=== PATIENT | male | born 1950 | race Caucasian/White ===

== ENCOUNTER 2020-03-30 09:19 | Inpatient (IN) ==
[2020-03-24 14:45] LABS: Basophils # (Auto) 0.04 K/mcL (0.00-0.20); Basophils % (Auto) 0.6 % (0.0-2.0); Eosinophils # (Auto) 0.15 K/mcL (0.00-0.70); Eosinophils % (Auto) 2.1 % (0.0-7.0); Hematocrit 40.2 % (41.0-55.0); Hemoglobin 12.7 g/dL (13.5-16.5); Lymphocytes # (Auto) 1.73 K/mcL (1.50-4.80); Lymphocytes % (Auto) 24.4 % (15.0-49.0); Mean Cell Volume 85.9 fL (80.0-100.0); Mean Corpuscular HGB Conc 31.6 g/dL (31.0-36.0); Monocytes # (Auto) 0.48 K/mcL (0.10-0.90); Monocytes % (Auto) 6.8 % (1.0-12.0); Neutrophils % (Auto) 66.1 % (38.0-78.0); Platelet Count 260 K/mcL (140-440); RBC 4.68 M/mcL (4.50-5.90); Red Cell Distribution Width 13.2 % (11.5-14.5); WBC 7.1 K/mcL (4.5-11.0)
[2020-03-24 14:56] LABS: Blood Urea Nitrogen 13 mg/dL (8-23); Calcium 9.5 mg/dL (8.6-10.4); Carbon Dioxide 25 mmol/L (22-30); Chloride 101 mmol/L (96-108); Glomerular Filtration Rate 67; Glucose 130 mg/dL (70-105)
[2020-03-24 15:37] LABS: Appearance,Urine CLEAR (Clear); Bilirubin,Urine Negative (Negative); Color,Urine YELLOW; Culture Indicated,Urine No; Glucose,Urine (UA) 50 mg/dL (Negative); Ketones,Urine Negative (Negative); Leukocyte Esterase,Urine Negative /ug (Negative); Mucus,Urine FEW /hpf; Nitrate,Urine Negative (Negative); Protein,Urine 100 mg/dL (Negative); Specific Gravity,Urine 1.015 (1.000-1.035); Urine Blood 0.03 mg/dL (Negative); Urine Hyaline Cast 2 /lph (0-2); Urine RBC 4 /hpf (0-3); Urine Squamous Epithelial Cell 2 /hpf (0-4); Urine Transitional Epi Cells < 1 /hpf (0-2); Urine WBC 1 /hpf (0-4); Urobilinogen,Urine Negative
[2020-03-24 18:16] LABS: Hemoglobin A1C 9.4 % Hgb (4.0-6.0)
[~2020-03-30 09:19] MED LIST: IPRATROPIUM/ALBUTEROL 3 ML AMPUL.NEB NEB PRN; SCOPOLAMINE 1 PATCH PATCH TOPICAL PRN; ceFAZolin 3 GM in DEXTROSE 5% IN WATER 50 ML IV SCH
[2020-03-30] MEDS ORDERED: GENTAMICIN SULFATE 800 MG/20 ML VIAL IR ONE (10:58)
[2020-03-30] MEDS ORDERED: BUPIVACAINE 0.5% 50 ML VIAL IJ ONE (10:59)
[2020-03-30] MEDS ORDERED: KETAMINE 100 MG/ML ML ONE (11:50)
[2020-03-30] MEDS ORDERED: MIDAZOLAM 2 MG/2 ML VIAL ONE (11:50)
[2020-03-30] MEDS ORDERED: PROPOFOL 200 MG/20 ML VIAL IV ONE (11:50)
[2020-03-30] MEDS ORDERED: GLYCOPYRROLATE 0.2 MG/ML VIAL IV ONE (11:50)
[2020-03-30] MEDS ORDERED: fentaNYL 100 MCG/2 ML VIAL IV ONE (11:50)
[2020-03-30] MEDS ORDERED: LIDOCAINE HCL/PF 100 MG/5 ML SYRINGE IV ONE (11:50)
[2020-03-30] MEDS ORDERED: ONDANSETRON 4 MG/2 ML VIAL ONE (11:50)
[2020-03-30] MEDS ORDERED: DEXAMETHASONE 10 MG/ML VIAL ONE (11:50)
[2020-03-30] MEDS ORDERED: BENZOCAINE/MENTHOL 1 LOZENGE PO PRN (12:32)
[2020-03-30] MEDS ORDERED: LABETALOL 5 MG/ML ML IV PRN ×2 (12:32→14:53)
[2020-03-30] MEDS ORDERED: ONDANSETRON 4 MG/2 ML VIAL IV PRN ×2 (12:32→13:25)
[2020-03-30] MEDS ORDERED: IPRATROPIUM/ALBUTEROL 3 ML AMPUL.NEB NEB PRN (12:32)
[2020-03-30] MEDS ORDERED: LACTATED RINGERS 1,000 ML IV SCH (12:45)
[2020-03-30] MEDS ORDERED: METHOCARBAMOL 750 MG TABLET PO PRN (13:25)
[2020-03-30] MEDS: MEPERIDINE 25 MG/ML SYRINGE IV PRN ×2 (13:38→13:55)
[2020-03-30] MEDS: fentaNYL 100 MCG/2 ML VIAL IV PRN ×4 (13:41→14:14)
--- NOTE | 2020-03-30 13:43 | Brief Operative Note ---
Brief Operative Note Date of procedure: 03/30/20 Pre-op diagnosis: pseudathrosis ankle; diabetic neuropathy right Post-op diagnosis: same Procedure: BK amputation Grafts/Implants: No Anesthesia: GETA Findings: as above Complications: none Surgeon: Teo Cordoba Tourniquet Time (Minutes): 23 Specimens Removed/Pathology: other (leg for disposal) Condition: stable Disposition: PACU
--- NOTE | 2020-03-30 13:45 | Internal Med History&Physical ---
HPI History of Present Illness Patient information: Note initiated : 03/30/20 at 1:37 pm Service Date, if different from initiated Date: [] Patient: Pantera Jain a 69 y/o M admitted on 03/30/20 for Right Below Knee Amputation. Chief Complaint: [] History of present illness: Mr. Jain is a 69 year old M Who had a bimalleolar ankle fracture on the right with subsequent ORIF but with delayed union and subsequent revision March 2018. Taken back 06/2019 for posttraumatic arthritis and underwent ankle fusion. He continued to display failed healing and Today is now status post right below the knee amputation. Medical conditions include diabetes and hypertension. PFSH PFSH Social History smoking status: Never smoker MEDS/ALLERGIES Home Medications and Allergies Home Medications Medication Instructions Recorded Confirmed Type amlodipine 10 mg PO DAILY 12/19/17 03/30/20 History cholecalciferol (vitamin D3) 5,000 unit PO DAILY 12/19/17 03/30/20 History [Dialyvite Vitamin D] insulin glargine [Lantus] 60 mg SQ DAILY 12/19/17 03/30/20 History lisinopril [Zestril] 40 mg PO HS 12/19/17 03/30/20 History clotrimazole 1 dose TOPICAL BID 04/01/18 03/30/20 History polyethylene glycol 3350 17 gm PO PRN PRN 04/01/18 03/30/20 History simvastatin 20 mg PO HS 04/01/18 03/30/20 History glipizide 15 mg PO HS 03/24/20 03/30/20 History glipizide 20 mg PO QDAY 03/24/20 03/30/20 History insulin glargine [Lantus Solostar 30 unit SUBCUT HS 03/24/20 03/30/20 History U-100 Insulin] omeprazole 20 mg PO ACB 03/24/20 03/30/20 History sennosides-docusate sodium 1 tab-cap PO BID 03/24/20 03/30/20 History Allergies Allergy/AdvReac Type Severity Reaction Status Date / Time acetaminophen Allergy Severe Swelling Verified 03/24/20 11:14 of Lip/Tongue/Throat codeine Allergy Severe Anaphylaxis Verified 03/24/20 11:14 testosterone Allergy Intermediate Rash Verified 03/24/20 11:14 metformin AdvReac Severe Diarrhea Verified 03/24/20 11:14 EXAM Constitutional Vitals: Temp Pulse Resp BP Pulse Ox 97.5 F 77 16 204/86 97 03/30/20 10:00 03/30/20 10:00 03/30/20 10:00 03/30/20 10:00 03/30/20 10:00 A/P Narrative A/P Narrative: A: *s/p Right BKA (03/30): *DM w/neuropathy: *HTN/HLD: on norvasc/lisinopril -hypertensive on arrival *GERD P: -surgical site per Dr. Cordoba -continue home basal insulin and titrate up as needed, SSI -cont home norvasc 10mg & Lisinopril 40mg, may need to add diuretic - -pt/ot -ppx: post-op per Ortho/home ppi Time Spent With Patient Time: Total time spent is greater than 50% in coordination of care (as documented) at patient's floor/unit and/or counseling patient: QUALITY Stroke Symptom Onset Unknown: No VTE Deep Vein Thrombosis/Pulmonary Embolism Present on Admission: No
--- NOTE | 2020-03-30 14:13 | Internal Medicine Consult Note ---
HPI Data of Consult Primary Care Provider: Orlando Sloan Consult Narrative Patient Information: Note initiated : 03/30/20 at 2:10 pm Service Date, if different from initiated Date: [] Patient: Pantera Jain a 69 y/o M admitted on 03/30/20 for Right Below Knee Amputation. Chief Complaint: [] Mr. Jain is a 69 year old M who had a bimalleolar ankle fracture on the right with subsequent ORIF but with delayed union and subsequent revision March 2018. Taken back 06/2019 for posttraumatic arthritis and underwent ankle fusion. He continued to display failed healing and Today is now status post right below the knee amputation. Medical conditions include diabetes and hypertension. Patient presently in PACU. Comfortable and stable. cc:: CC: Teo Cordoba [facility] Social History (Updated 03/30/20 @ 14:12 by Steffen Armstrong DO) smoking status: Never smoker additional history: Past medical history: Diabetes hypertension hyperlipidemia GERD Past surgical history: Right ankle fracture repair with revision and cholecystectomy Social history: Patient denies tobacco drinks alcohol rarely ambulates with walker lives by himself MEDS/ALLERGIES Home Medications and Allergies Home Medications Medication Instructions Recorded Confirmed Type amlodipine 10 mg PO DAILY 12/19/17 03/30/20 History cholecalciferol (vitamin D3) 5,000 unit PO DAILY 12/19/17 03/30/20 History [Dialyvite Vitamin D] insulin glargine [Lantus] 60 mg SQ DAILY 12/19/17 03/30/20 History lisinopril [Zestril] 40 mg PO HS 12/19/17 03/30/20 History clotrimazole 1 dose TOPICAL BID 04/01/18 03/30/20 History polyethylene glycol 3350 17 gm PO PRN PRN 04/01/18 03/30/20 History simvastatin 20 mg PO HS 04/01/18 03/30/20 History glipizide 15 mg PO HS 03/24/20 03/30/20 History glipizide 20 mg PO QDAY 03/24/20 03/30/20 History insulin glargine [Lantus Solostar 30 unit SUBCUT HS 03/24/20 03/30/20 History U-100 Insulin] omeprazole 20 mg PO ACB 03/24/20 03/30/20 History sennosides-docusate sodium 1 tab-cap PO BID 03/24/20 03/30/20 History Allergies Allergy/AdvReac Type Severity Reaction Status Date / Time acetaminophen Allergy Severe Swelling Verified 03/24/20 11:14 of Lip/Tongue/Throat codeine Allergy Severe Anaphylaxis Verified 03/24/20 11:14 testosterone Allergy Intermediate Rash Verified 03/24/20 11:14 metformin AdvReac Severe Diarrhea Verified 03/24/20 11:14 EXAM Constitutional Vitals: Temp Pulse Resp BP Pulse Ox 98.7 F 103 H 19 141/70 97 03/30/20 13:45 03/30/20 13:45 03/30/20 13:45 03/30/20 13:45 03/30/20 13:45 Exam: General: Alert, Awake, No acute Distress, obese Eyes/N/T: EOMI, PERRL, Head/Neck: neck supple, normocephalic atraumatic CV: RRR, No murmurs, normal s1/s2 Pulm: Clear b/l, no wheezing/rhonchi/rales Abd: soft, nontender, +BS x4 Ext: no clubbing/cyanosis. 1-2+ edema LLE. RLE BKA Neuro: Alert, no focal deficits, moves all extremities, CN 2-12 grossly intact, Skin: warm/dry A/P Narrative A/P Narrative: A: *s/p Right BKA (03/30): *DM w/neuropathy: *HTN/HLD: on norvasc/lisinopril -hypertensive on arrival *Peripheral edema: *GERD P: -surgical site per Dr. Cordoba -continue home basal insulin and titrate up as needed, SSI -cont home norvasc 10mg & Lisinopril 40mg, prn IV - may need to add diuretic or decrease norvasc for peripheral edema -TONYA stocking to left -pt/ot -ppx: post-op per Ortho/home ppi Time Spent With Patient Time: Total time spent is greater than 50% in coordination of care (as documented) at patient's floor/unit and/or counseling patient:
[2020-03-30] MEDS ORDERED: DEXTROSE 50% 50 ML VIAL IV PRN (14:53)
[2020-03-30] MEDS ORDERED: hydrALAZINE 20 MG/ML VIAL IV PRN (14:53)
[2020-03-30] MEDS ORDERED: DEXTROSE 31 GM ORAL.SUSP PO PRN (14:53)
[2020-03-30] MEDS: traMADol 50 MG TABLET PO PRN ×2 (15:07→19:07)
[2020-03-30] MEDS: morphine 4 MG/ML VIAL IV PRN ×2 (15:08→19:05)
[2020-03-30] MEDS: INSULIN LISPRO 1 UNIT/0.01 ML UNIT SQ SCH ×2 (17:59→20:48)
[2020-03-30] MEDS: INSULIN GLARGINE, HUMAN 1 UNIT/0.01 ML SQ SCH (20:47)
[2020-03-30] MEDS: SENNOSIDES/DOCUSATE SODIUM 1 TAB TABLET PO SCH (20:48)
[2020-03-30] MEDS: glipiZIDE 5 MG TABLET PO SCH (20:48)
[2020-03-30] MEDS: oxyCODONE 10 MG TAB.ER.12H PO SCH (20:49)
[2020-03-30] MEDS: SIMVASTATIN 20 MG TABLET PO SCH (20:49)
[2020-03-30] MEDS ORDERED: POLYETHYLENE GLYCOL 3350 17 GM PACKET PO PRN (21:00)
[2020-03-30] MEDS ORDERED: LISINOPRIL 20 MG TABLET PO SCH (21:00)
[2020-03-31] MEDS ORDERED: ONDANSETRON 4 MG ODT TABLET ONE (01:04)
[2020-03-31] MEDS: traMADol 50 MG TABLET PO PRN ×2 (05:15→19:27)
[2020-03-31] MEDS ORDERED: ONDANSETRON 4 MG ODT TABLET SL PRN (06:06)
[2020-03-31] MEDS: OMEPRAZOLE 20 MG CAPSULE PO SCH (06:59)
[2020-03-31] MEDS: morphine 4 MG/ML VIAL IV PRN ×2 (06:59→19:26)
[2020-03-31 07:03] LABS: ALT/SGPT 13 U/L (<40); AST/SGOT 19 U/L (<40); Albumin 3.3 gm/dL (3.2-5.2); Alkaline Phosphatase 115 U/L (39-117); Bilirubin,Direct < 0.2 mg/dL (<0.3); Bilirubin,Total 0.3 mg/dL (0.1-1.0); Blood Urea Nitrogen 20 mg/dL (8-23); Calcium 8.7 mg/dL (8.6-10.4); Carbon Dioxide 22 mmol/L (22-30); Chloride 96 mmol/L (96-108); Globulin 3.4 gm/dL (2.2-3.7); Glomerular Filtration Rate 46; Glucose 411 mg/dL (70-105); Lactate Dehydrogenase 234 U/L (135-225); Triglycerides 117 mg/dL (<150); Uric Acid 5.8 mg/dL (2.5-8.0)
--- NOTE | 2020-03-31 07:33 | Internal Med Progress Note ---
SUBJECTIVE Subjective Patient information: Note initiated : 03/31/20 at 7:30 am Service Date, if different from initiated Date: [] Patient: Pantera Jain a 69 y/o M admitted on 03/30/20 for Right Below Knee Amputation. Chief Complaint: [] Interval history: Mr. Jain is a 69 year old M who had a bimalleolar ankle fracture on the right with subsequent ORIF but with delayed union and subsequent revision March 2018. Taken back 06/2019 for posttraumatic arthritis and underwent ankle fusion. He continued to display failed healing and Today is now status post right below the knee amputation. Medical conditions include diabetes and hypertension. Patient presently in PACU. Comfortable and stable. 03/31 Blood glucose elevates elevated today which is likely reason for his mild hyponatremia and hyperkalemia. He did get his evening insulin last night but he takes the majority of his insulin in the mornings. He will get that this morning. We will put him on every 4 Accu-Cheks with high sliding scale while is blood sugars level out. Creatinine elevated today we will check urine studies and trial IV fluids. Patient states he is urinating okay will but will bladder scan if necessary renal ultrasound rule out hydronephrosis. He really has no complaints this morning. Review of Systems: denies headache/fever/chills/nausea/vomiting/chest or abdominal pain/cough/dyspnea/diarrhea. Otherwise see above. Constitutional Vitals: Vital Signs Temp Pulse Resp BP Pulse Ox 97.5 F 90 16 116/73 95 03/31/20 06:32 03/31/20 06:32 03/31/20 06:32 03/31/20 06:32 03/31/20 06:32 Period Temp Pulse Resp BP Sys/Kelley Pulse Ox Last 24 Hr 97.1 F-98.7 F 77-114 12-25 116-204/69-97 90-100 Intake and Output 03/30/20 03/31/20 03/31/20 21:59 05:59 13:59 Intake Total 700 350 Output Total 0 350 175 Balance 700 0 -175 Weight 142.927 kg Intake & Output: Intake & Output 03/30/20 03/31/20 03/31/20 21:59 05:59 13:59 Intake Total 700 350 Output Total 0 350 175 Balance 700 0 -175 Weight 142.927 kg Intake: Oral 700 350 Output: Drainage 0 0 RT BKA 0 0 Void Amount 350 175 Other: Meal Dinner Percent of Meal Consumed 75% Feeding Ability Independent Urine Appearance Clear Clear Urine Color Dark Yellow Dark Yellow Exam: General: Alert, Awake, No acute Distress, obese Eyes/N/T: EOMI, Head/Neck: neck supple, CV: RRR, No murmurs, Pulm: Clear b/l, no wheezing/rhonchi/rales Abd: soft, nontender, +BS x4 Ext: no clubbing/cyanosis. 1-2+ edema LLE. RLE BKA Neuro: Alert, no focal deficits, moves all extremities, CN 2-12 grossly intact, Skin: warm/dry OBJ DATA Labs CBC & Chem 7: 03/24/20 11:38 03/31/20 05:12 Labs: Abnormal Lab Results 03/31/20 05:12 Sodium 131 L Potassium 5.8 H Creatinine 1.5 H Glucose 411 H Phosphorus 5.0 H Lactate Dehydrogenase 234 H Meds: Medications Amlodipine Besylate (Norvasc) 10 mg PO DAILY [facility] Dextrose (Dextrose 50%) 0 ml IV UD PRN PRN Reason: Hypoglycemia Diagnostic Test (Pha) (Accu-Chek) 1 each FS [facility] Last Admin: 03/30/20 20:32 Dose: 1 each Documented by: Glipizide (Glucotrol) 15 mg PO [facility] Last Admin: 03/30/20 20:48 Dose: 15 mg Documented by: Glipizide (Glucotrol) 20 mg PO QDAY [facility] Glucose (Insta-Glucose) 15 gm PO PRN PRN PRN Reason: Hypoglycemia Hydralazine HCl (Apresoline) 0 mg IV Q2HP PRN PRN Reason: Hypertension Insulin Glargine (Lantus) 30 unit SQ [facility] Last Admin: 03/30/20 20:47 Dose: 30 units Documented by: Insulin Glargine (Lantus) 60 unit SQ DAILY [facility] Insulin Human Lispro (Humalog) 0 unit SQ [facility]; Protocol Last Admin: 03/30/20 20:48 Dose: 8 units Documented by: Labetalol HCl (Trandate) 0 mg IV Q2HP PRN PRN Reason: Hypertension Lisinopril (Zestril) 40 mg PO [facility] Last Admin: 03/30/20 20:48 Dose: 40 mg Documented by: Methocarbamol (Robaxin) 750 mg PO Q6HP PRN PRN Reason: Muscle Spasm Morphine Sulfate (Morphine) 2 - 6 mg IV Q1HP PRN; Protocol PRN Reason: Per Pain Protocol Last Admin: 03/31/20 06:59 Dose: 4 mg Documented by: Omeprazole (Omeprazole 20 Mg Capsule) 20 mg PO ACB [facility] Last Admin: 03/31/20 06:59 Dose: 20 mg Documented by: Ondansetron HCl (Ondansetron 4 Mg Odt Tablet) 4 mg SL Q4HP PRN PRN Reason: Nausea Oxycodone HCl (Oxycontin) 10 mg PO BID [facility]; Protocol Last Admin: 03/30/20 20:49 Dose: 10 mg Documented by: Polyethylene Glycol (Miralax) 17 gm PO HSP PRN PRN Reason: Constipation Senna/Docusate Sodium (Senna Plus Tablet) 1 tab PO BID [facility] Last Admin: 03/30/20 20:48 Dose: 1 tab Documented by: Simvastatin (Zocor) 20 mg PO HS [facility] Last Admin: 03/30/20 20:49 Dose: 20 mg Documented by: Tramadol HCl (Tramadol 50 Mg Tablet) 50 mg PO Q4HP PRN; Protocol PRN Reason: Pain Last Admin: 03/31/20 05:15 Dose: 50 mg Documented by: Vitamin D (Vitamin D3) 5,000 unit PO DAILY [facility] A/P Narrative A/P Narrative: A: *s/p Right BKA (03/30): *DM w/neuropathy: with hyperglycemia *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 Cordoba -continue home basal insulin and titrate up as needed, SSI q4 for now, -urine studies, trial IVF, f/u renal fxn, monitor uop, bladder scan, renal u/s if necessary -cont home norvasc 10mg, prn IV -hold Lisinopril for renal fxn and hyperkalemia - may need decrease norvasc for peripheral edema or alternative -TONYA stocking to left -pt/ot -ppx: post-op per Ortho/home ppi Time Spent With Patient Time: Total time spent is greater than 50% in coordination of care (as documented) at patient's floor/unit and/or counseling patient: QUALITY Stroke Symptom Onset Unknown: No VTE Deep Vein Thrombosis/Pulmonary Embolism Present on Admission: No
[2020-03-31] MEDS ORDERED: SODIUM POLYSTYRENE SULFONATE 15 GM/60 ML SUSPENSION PO ONE (07:36)
[2020-03-31] MEDS ORDERED: DEXTROSE 50% 50 ML VIAL IV PRN (07:39)
[2020-03-31] MEDS ORDERED: DEXTROSE 31 GM ORAL.SUSP PO PRN (07:39)
[2020-03-31] MEDS ORDERED: 0.9 % SODIUM CHLORIDE 1,000 ML IV SCH (07:45)
[2020-03-31] MEDS: INSULIN LISPRO 1 UNIT/0.01 ML UNIT SQ SCH ×6 (08:20→23:41)
--- NOTE | 2020-03-31 09:27 | Operative Note ---
DATE OF OPERATION: 03/30/2020 PREOPERATIVE DIAGNOSES: 1. Nonunion, right ankle fusion. 2. Diabetic neuropathy. POSTOPERATIVE DIAGNOSES: 1. Nonunion, right ankle fusion. 2. Diabetic neuropathy. PROCEDURE: Right [id number] amputation. SURGEON: Teo Cordoba M.D. MANAGER OF PROJECT MANAGEMENT: Jurgen Lezama PA-C. This providers expertise and technical skill were required throughout the case. The PA assisted with preoperative coordination, intraoperative retraction, wound closure, and dressing and splint application, as well as postoperative documentation and care coordination. ANESTHESIA: General by Evelio Vale M.D. ESTIMATED BLOOD LOSS: 300 mL. TOURNIQUET TIME: 23 minutes. SUMMARY OF PROCEDURE: General anesthesia was obtained. The right leg was prepped and draped. A modified fishmouth incision was outlined to plan a bone cut 4 fingerbreadths below the tibial tubercle. The posterior flap was longer than the anterior flap. The incision was made followed by deep dissection using a Bovie and a knife to elevate the anterior musculature. The osteotomy was then done of the tibia and an anterior bevel was taken. The fibula was osteotomized proximal to the tibial cut. This posterior skin incision had been made. A bevelled cut of the muscle and subcutaneous tissue was then done after the bone osteotomy using a cake knife. After completion of this, the leg was removed. There was no evidence of infection in the area. The popliteal nerve was injected with 10 mL of Marcaine. It was then transected above the level of the bone cut. The popliteal artery was suture ligated x2. Feeding arteries and veins were ligated as well. The tourniquet was let down. The remaining bleeders were clamped and then ligated. The area was thoroughly irrigated. Two drill holes were then made in the anterior tibia. Through each hole a suture of 0 Vicryl was placed. That was then placed through the superficial and deep posterior fascia. The posterior flap was reduced. These sutures were tied creating a myodesis effect. The remainder of the fascia was closed with a 0 Vicryl bringing the anterior soft tissue to the superficial posterior fascia. The wound was then closed using 2-0 Monocryl buried on the subcutaneous tissue and simple mattress sutures of 0 Prolene on the skin. A wound VAC was then placed as well, followed by a knee immobilizer set at 0-60. The sponge and needle count was correct. The patient tolerated the procedure well and was taken to the recovery room in stable condition. AB:sarah Job ID: [id number] Doc ID: [id number] Wayne Peacock DO
[2020-03-31] MEDS: SENNOSIDES/DOCUSATE SODIUM 1 TAB TABLET PO SCH ×2 (09:58→21:06)
[2020-03-31] MEDS: glipiZIDE 5 MG TABLET PO SCH ×2 (09:58→21:06)
[2020-03-31] MEDS: amLODIPine 10 MG TABLET PO SCH (09:58)
[2020-03-31] MEDS: VITAMIN D3 5,000 UNIT CAPSULE PO SCH (09:58)
[2020-03-31] MEDS: oxyCODONE 10 MG TAB.ER.12H PO SCH ×2 (09:59→21:06)
[2020-03-31] MEDS: INSULIN GLARGINE, HUMAN 1 UNIT/0.01 ML SQ SCH ×2 (10:01→21:07)
--- NOTE | 2020-03-31 12:03 | Orthopedic Progress Note ---
SUBJECTIVE Subjective Patient information: Note initiated : 03/31/20 at 11:58 am Service Date, if different from initiated Date: [] Patient: Pantera Jain 69 y/o M admitted on 03/30/20 for Right Below Knee Amputation. Chief Complaint: [] Patient is POD 1 from right below the knee amputation. He says is pain is well controlled and overall he is feeling well. He desires to go home instead of a S NF but would like to regain his strength and work with PT on transfers before doing so. He has a wheelchair accessible home. He denies any CP, ANDERSON, nausea, vomiting, fever, or any other acute symptoms. Constitutional Vitals: Vital Signs Temp Pulse Resp BP Pulse Ox 98 F 81 18 108/63 91 03/31/20 11:48 03/31/20 11:48 03/31/20 11:48 03/31/20 11:48 03/31/20 11:48 Period Temp Pulse Resp BP Sys/Kelley Pulse Ox Last 24 Hr 97.1 F-98.7 F 81-114 12-25 108-158/63-97 90-100 Intake and Output 03/30/20 03/31/20 03/31/20 21:59 05:59 13:59 Intake Total 700 350 320 Output Total 0 350 175 Balance 700 0 145 Weight 315 lb 1.6 oz Intake & Output: Intake & Output 03/30/20 03/31/20 03/31/20 21:59 05:59 13:59 Intake Total 700 350 320 Output Total 0 350 175 Balance 700 0 145 Weight 315 lb 1.6 oz Intake: Oral 700 350 320 Output: Drainage 0 0 RT BKA 0 0 Void Amount 350 175 Other: Meal Dinner Breakfast Percent of Meal Consumed 75% 75% Feeding Ability Independent Independent Urine Appearance Clear Clear Urine Color Dark Yellow Dark Yellow OBJ DATA Labs CBC & Chem 7: 03/24/20 11:38 03/31/20 05:12 Labs: Abnormal Lab Results 03/31/20 05:12 Sodium 131 L Potassium 5.8 H Creatinine 1.5 H Glucose 411 H Phosphorus 5.0 H Lactate Dehydrogenase 234 H Meds: Medications Amlodipine Besylate (Amlodipine 10 Mg Tablet) 10 mg PO DAILY [facility] Last Admin: 03/31/20 09:58 Dose: 10 mg Documented by: Dextrose (Dextrose 50%) 0 ml IV UD PRN PRN Reason: Hypoglycemia Dextrose (Dextrose 50% 50 Ml Vial) 0 ml IV UD PRN PRN Reason: Hypoglycemia Diagnostic Test (Pha) (Accu-Chek) 1 each FS ACHS [facility] Last Admin: 03/31/20 11:49 Dose: Not Given Documented by: Diagnostic Test (Pha) (Accu-Chek 1 Each Strip) 1 each FS Q4H [facility] Last Admin: 03/31/20 11:45 Dose: 1 each Documented by: Glipizide (Glucotrol) 15 mg PO HS [facility] Last Admin: 03/30/20 20:48 Dose: 15 mg Documented by: Glipizide (Glipizide 5 Mg Tablet) 20 mg PO QDAY [facility] Last Admin: 03/31/20 09:58 Dose: 20 mg Documented by: Glucose (Insta-Glucose) 15 gm PO PRN PRN PRN Reason: Hypoglycemia Glucose (Dextrose 31 Gm Oral.Susp) 15 gm PO PRN PRN PRN Reason: Hypoglycemia Hydralazine HCl (Apresoline) 0 mg IV Q2HP PRN PRN Reason: Hypertension Sodium Chloride (Sodium Chloride 0.9%) 1,000 mls @ 100 mls/hr IV .Q10H [facility] Stop: 03/31/20 17:44 Last Admin: 03/31/20 10:10 Dose: 100 mls/hr Documented by: Insulin Glargine (Lantus) 30 unit SQ [facility] Last Admin: 03/30/20 20:47 Dose: 30 units Documented by: Insulin Glargine (Insulin Glargine, Human 1 Unit/0.01 Ml) 60 unit SQ DAILY [facility] Last Admin: 03/31/20 10:01 Dose: 60 units Documented by: Insulin Human Lispro (Insulin Lispro 1 Unit/0.01 Ml Unit) 0 unit SQ Q4H [facility]; Protocol Last Admin: 03/31/20 08:20 Dose: 20 units Documented by: Labetalol HCl (Trandate) 0 mg IV Q2HP PRN PRN Reason: Hypertension Methocarbamol (Robaxin) 750 mg PO Q6HP PRN PRN Reason: Muscle Spasm Morphine Sulfate (Morphine 4 Mg/Ml Vial) 2 - 6 mg IV Q1HP PRN; Protocol PRN Reason: Per Pain Protocol Last Admin: 03/31/20 06:59 Dose: 4 mg Documented by: Omeprazole (Omeprazole 20 Mg Capsule) 20 mg PO ACB [facility] Last Admin: 03/31/20 06:59 Dose: 20 mg Documented by: Ondansetron HCl (Ondansetron 4 Mg Odt Tablet) 4 mg SL Q4HP PRN PRN Reason: Nausea Oxycodone HCl (Oxycodone 10 Mg Tab.Er.12h) 10 mg PO BID [facility]; Protocol Last Admin: 03/31/20 09:59 Dose: 10 mg Documented by: Polyethylene Glycol (Miralax) 17 gm PO HSP PRN PRN Reason: Constipation Senna/Docusate Sodium (Senna Plus Tablet) 1 tab PO BID [facility] Last Admin: 03/31/20 09:58 Dose: 1 tab Documented by: Simvastatin (Zocor) 20 mg PO HS [facility] Last Admin: 03/30/20 20:49 Dose: 20 mg Documented by: Tramadol HCl (Tramadol 50 Mg Tablet) 50 mg PO Q4HP PRN; Protocol PRN Reason: Pain Last Admin: 03/31/20 05:15 Dose: 50 mg Documented by: Vitamin D (Vitamin D3 5,000 Unit Capsule) 5,000 unit PO DAILY [facility] Last Admin: 03/31/20 09:58 Dose: 5,000 unit Documented by: A/P Assessment and plan (1) History of right below knee amputation: Status: Acute Comment: Patient is POD 1 from right BKA doing well. Continue PT and medical management per hospitalist Patient desires to discharge to home and likely plan for discharge in next 1-2 days Follow up with Jurgen Lezama on 04-05-20 Leave prevena wound vac in place until follow up appointment Re apply louis/knee ranger as needed. Please leave knee ranger on to protect stump as much as possible. Orthopedics signing off, if needed please contact rail transportation operator provider for any issues. Time Spent With Patient Time: Total time spent is greater than 50% in coordination of care (as documented) at patient's floor/unit and/or counseling patient:
--- NOTE | 2020-03-31 12:54 | Internal Med Progress Note ---
SUBJECTIVE Subjective Patient information: Note initiated : 04/01/20 at 12:44 pm Service Date, if different from initiated Date: [] Patient: Pantera Jain a 69 y/o M admitted on 03/30/20 for Right Below Knee Amputation. Chief Complaint: [] Interval history: Mr. Jain is a 69 year old M who had a bimalleolar ankle fracture on the right with subsequent ORIF but with delayed union and subsequent revision March 2018. Taken back 06/2019 for posttraumatic arthritis and underwent ankle fusion. He continued to display failed healing and Today is now status post right below the knee amputation. Medical conditions include diabetes and hypertension. Patient presently in PACU. Comfortable and stable. 03/31 Blood glucose elevates elevated today which is likely reason for his mild hyponatremia and hyperkalemia. He did get his evening insulin last night but he takes the majority of his insulin in the mornings. He will get that this morni ng. We will put him on every 4 Accu-Cheks with high sliding scale while is blood sugars level out. Creatinine elevated today we will check urine studies and trial IV fluids. Patient states he is urinating okay will but will bladder scan if necessary renal ultrasound rule out hydronephrosis. He really has no complaints this morning. 04/01 Creatinine increasing, hypokalemia resolved. Continuing IV fluid this morning with 500 mL bolus. Check bilateral renal ultrasound, UA. Decreased Lantus AM and PM doses as DEENA will likely decrease insulin requirement. Discontinued morphine. Bladder scan Qshift and straight cath prn. Review of Systems: denies headache/fever/chills/nausea/vomiting/chest or abdominal pain/cough/dyspnea/diarrhea. Otherwise see above. Constitutional Vitals: Vital Signs Temp Pulse Resp BP Pulse Ox 98 F 81 18 108/63 91 03/31/20 11:48 03/31/20 11:48 03/31/20 11:48 03/31/20 11:48 03/31/20 11:48 Period Temp Pulse Resp BP Sys/Kelley Pulse Ox Last 24 Hr 97.1 F-98.7 F 81-114 12-25 108-158/63-97 90-100 Intake and Output 03/30/20 03/31/20 03/31/20 21:59 05:59 13:59 Intake Total 700 350 320 Output Total 0 350 175 Balance 700 0 145 Weight 142.927 kg Intake & Output: Intake & Output 03/30/20 03/31/20 03/31/20 21:59 05:59 13:59 Intake Total 700 350 320 Output Total 0 350 175 Balance 700 0 145 Weight 142.927 kg Intake: Oral 700 350 320 Output: Drainage 0 0 0 RT BKA 0 0 0 Void Amount 350 175 Other: Meal Dinner Breakfast Percent of Meal Consumed 75% 75% Feeding Ability Independent Independent Urine Appearance Clear Clear Urine Color Dark Yellow Dark Yellow Exam: General: Alert, Awake, No acute Distress, obese Eyes/N/T: EOMI, Head/Neck: neck supple, CV: RRR, No murmurs, Pulm: Clear b/l, no wheezing/rhonchi/rales Abd: soft, nontender, +BS x4 Ext: no clubbing/cyanosis. 1-2+ edema LLE. RLE BKA Neuro: Alert, no focal deficits, moves all extremities, CN 2-12 grossly intact, Skin: warm/dry OBJ DATA Labs CBC & Chem 7: 03/24/20 11:38 04/01/20 05:19 Labs: Abnormal Lab Results 03/31/20 05:12 Sodium 131 L Potassium 5.8 H Creatinine 1.5 H Glucose 411 H Phosphorus 5.0 H Lactate Dehydrogenase 234 H Meds: Medications Amlodipine Besylate (Amlodipine 10 Mg Tablet) 10 mg PO DAILY [facility] Last Admin: 03/31/20 09:58 Dose: 10 mg Documented by: Dextrose (Dextrose 50%) 0 ml IV UD PRN PRN Reason: Hypoglycemia Dextrose (Dextrose 50% 50 Ml Vial) 0 ml IV UD PRN PRN Reason: Hypoglycemia Diagnostic Test (Pha) (Accu-Chek) 1 each FS ACHS [facility] Last Admin: 03/31/20 11:49 Dose: Not Given Documented by: Diagnostic Test (Pha) (Accu-Chek 1 Each Strip) 1 each FS Q4H [facility] Last Admin: 03/31/20 11:45 Dose: 1 each Documented by: Glipizide (Glucotrol) 15 mg PO HS [facility] Last Admin: 03/30/20 20:48 Dose: 15 mg Documented by: Glipizide (Glipizide 5 Mg Tablet) 20 mg PO QDAY [facility] Last Admin: 03/31/20 09:58 Dose: 20 mg Documented by: Glucose (Insta-Glucose) 15 gm PO PRN PRN PRN Reason: Hypoglycemia Glucose (Dextrose 31 Gm Oral.Susp) 15 gm PO PRN PRN PRN Reason: Hypoglycemia Hydralazine HCl (Apresoline) 0 mg IV Q2HP PRN PRN Reason: Hypertension Sodium Chloride (Sodium Chloride 0.9%) 1,000 mls @ 100 mls/hr IV .Q10H [facility] Stop: 03/31/20 17:44 Last Admin: 03/31/20 10:10 Dose: 100 mls/hr Documented by: Insulin Glargine (Lantus) 30 unit SQ HS [facility] Last Admin: 03/30/20 20:47 Dose: 30 units Documented by: Insulin Glargine (Insulin Glargine, Human 1 Unit/0.01 Ml) 60 unit SQ DAILY [facility] Last Admin: 03/31/20 10:01 Dose: 60 units Documented by: Insulin Human Lispro (Insulin Lispro 1 Unit/0.01 Ml Unit) 0 unit SQ Q4H [facility]; Protocol Last Admin: 03/31/20 11:54 Dose: 12 units Documented by: Labetalol HCl (Trandate) 0 mg IV Q2HP PRN PRN Reason: Hypertension Methocarbamol (Robaxin) 750 mg PO Q6HP PRN PRN Reason: Muscle Spasm Morphine Sulfate (Morphine 4 Mg/Ml Vial) 2 - 6 mg IV Q1HP PRN; Protocol PRN Reason: Per Pain Protocol Last Admin: 03/31/20 06:59 Dose: 4 mg Documented by: Omeprazole (Omeprazole 20 Mg Capsule) 20 mg PO ACB [facility] Last Admin: 03/31/20 06:59 Dose: 20 mg Documented by: Ondansetron HCl (Ondansetron 4 Mg Odt Tablet) 4 mg SL Q4HP PRN PRN Reason: Nausea Oxycodone HCl (Oxycodone 10 Mg Tab.Er.12h) 10 mg PO BID [facility]; Protocol Last Admin: 03/31/20 09:59 Dose: 10 mg Documented by: Polyethylene Glycol (Miralax) 17 gm PO HSP PRN PRN Reason: Constipation Senna/Docusate Sodium (Senna Plus Tablet) 1 tab PO BID [facility] Last Admin: 03/31/20 09:58 Dose: 1 tab Documented by: Simvastatin (Zocor) 20 mg PO [facility] Last Admin: 03/30/20 20:49 Dose: 20 mg Documented by: Tramadol HCl (Tramadol 50 Mg Tablet) 50 mg PO Q4HP PRN; Protocol PRN Reason: Pain Last Admin: 03/31/20 05:15 Dose: 50 mg Documented by: Vitamin D (Vitamin D3 5,000 Unit Capsule) 5,000 unit PO DAILY [facility] Last Admin: 03/31/20 09:58 Dose: 5,000 unit Documented by: A/P Assessment and plan (1) History of right below knee amputation: Status: Acute Comment: Patient is POD 1 from right BKA doing well. Continue PT and medical management per hospitalist Patient desires to discharge to home and likely plan for discharge in next 1-2 days Follow up with Jurgen Lezama on 04-05-20 Leave prevena wound vac in place until follow up appointment Re apply louis/knee ranger as needed. Please leave knee ranger on to protect stump as much as possible. Orthopedics signing off, if needed please contact practice consultant provider for any issues. Narrative A/P Narrative: ASSESSMENT: 69-year-old male history of HTN, IDDM II, HLD, CKD GERD, recent right bimalleolar ankle fractures initially treated with ORIF then later required ankle fusion. This was unfortunately c/b nonhealing wound requiring r ight BKA (03/30/20). Hospital course complicated by DEENA on CKD. 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 Cordoba -decrease Lantus to 20 AM and 40 PM, decrease SSI to AC&HS. -urine studies, trial IVF, geo renal UA, monitor uop, bladder scan and straight cath prn -avoid nephrotoxic meds, hypotension -hold home norvasc for low normal blood pressure -hold Lisinopril for renal fxn and recent -TONYA stocking to left -wound cares -pt/ot -ppx: heparin SQ -Dispo: probably SNF Time Spent With Patient Time: Total time spent is greater than 50% in coordination of care (as documented) at patient's floor/unit and/or counseling patient: 35 QUALITY Stroke Symptom Onset Unknown: No VTE Deep Vein Thrombosis/Pulmonary Embolism Present on Admission: No
[2020-03-31 14:11] LABS: Blood Urea Nitrogen 28 mg/dL (8-23); Calcium 8.7 mg/dL (8.6-10.4); Carbon Dioxide 21 mmol/L (22-30); Chloride 92 mmol/L (96-108); Glomerular Filtration Rate 40; Glucose 202 mg/dL (70-105)
[2020-03-31] MEDS: SIMVASTATIN 20 MG TABLET PO SCH (21:06)
[2020-04-01] MEDS: INSULIN LISPRO 1 UNIT/0.01 ML UNIT SQ SCH ×5 (03:47→20:46)
[2020-04-01] MEDS: OMEPRAZOLE 20 MG CAPSULE PO SCH (07:46)
[2020-04-01 08:08] LABS: ALT/SGPT 10 U/L (<40); AST/SGOT 24 U/L (<40); Albumin 3.3 gm/dL (3.2-5.2); Alkaline Phosphatase 97 U/L (39-117); Bilirubin,Direct < 0.2 mg/dL (<0.3); Bilirubin,Total 0.3 mg/dL (0.1-1.0); Blood Urea Nitrogen 42 mg/dL (8-23); Calcium 8.5 mg/dL (8.6-10.4); Carbon Dioxide 24 mmol/L (22-30); Chloride 96 mmol/L (96-108); Globulin 3.3 gm/dL (2.2-3.7); Glomerular Filtration Rate 24; Glucose 100 mg/dL (70-105); Lactate Dehydrogenase 215 U/L (135-225); Phosphorous 7.1 mg/dL (2.5-4.5); Triglycerides 164 mg/dL (<150); Uric Acid 6.3 mg/dL (2.5-8.0)
[2020-04-01] MEDS ORDERED: 0.9 % SODIUM CHLORIDE 500 ML IV ONE (08:28)
[2020-04-01] MEDS: SENNOSIDES/DOCUSATE SODIUM 1 TAB TABLET PO SCH ×2 (08:46→22:44)
[2020-04-01] MEDS: oxyCODONE 10 MG TAB.ER.12H PO SCH (08:46)
[2020-04-01] MEDS: INSULIN GLARGINE, HUMAN 1 UNIT/0.01 ML SQ SCH (08:46)
[2020-04-01] MEDS: VITAMIN D3 5,000 UNIT CAPSULE PO SCH (08:46)
[2020-04-01] MEDS: glipiZIDE 5 MG TABLET PO SCH (08:46)
[2020-04-01] MEDS: amLODIPine 10 MG TABLET PO SCH (08:47)
[2020-04-01] MEDS ORDERED: LACTULOSE 20 GM/30 ML ORAL.SOL PO PRN ×2 (09:31→20:17)
[2020-04-01 14:20] LABS: Appearance,Urine CLEAR (Clear); Bacteria,Urine Few /hpf (0); Bilirubin,Urine Negative (Negative); Calcium Oxalate Crystals,Urine Few /hpf; Color,Urine YELLOW; Culture Indicated,Urine Yes; Glucose,Urine (UA) 150 mg/dL (Negative); Ketones,Urine Negative (Negative); Leukocyte Esterase,Urine Negative /ug (Negative); Mucus,Urine Mod /hpf; Nitrate,Urine Negative (Negative); Protein,Urine 30 mg/dL (Negative); Specific Gravity,Urine 1.018 (1.000-1.035); Urine Blood Negative (Negative); Urine Hyaline Cast 40 /lph (0-2); Urine RBC < 1 /hpf (0-3); Urine Squamous Epithelial Cell 1 /hpf (0-4); Urine WBC 2 /hpf (0-4); Urobilinogen,Urine Negative
[2020-04-01] MEDS ORDERED: ALBUTEROL SULFATE 2.5 MG/3 ML NEBULIZER NEB PRN ×2 (16:32→20:17)
[2020-04-01] MEDS ORDERED: ALBUTEROL SULFATE 2.5 MG/3 ML NEBULIZER ONE (16:52)
--- NOTE | 2020-04-01 18:30 | XRay Report ---
CLINICAL INFORMATION: Increasingly SOB COMPARISON: None. FINDINGS: Heart is moderately enlarged. Mediastinum is unremarkable. There is mild redistribution of the upper lobe pulmonary vasculature - no definite edema. Minor bibasilar atelectasis noted. No effusions. IMPRESSION: Borderline CHF or volume overload Interpreted and Authenticated by: Carlos Temple 04/01/20
[2020-04-01] MEDS ORDERED: FUROSEMIDE 40 MG/4 ML VIAL IV ONE (19:02)
[2020-04-01] MEDS ORDERED: traMADol 50 MG TABLET PO PRN (20:17)
[2020-04-01] MEDS ORDERED: LABETALOL 5 MG/ML ML IV PRN (20:17)
[2020-04-01] MEDS ORDERED: POLYETHYLENE GLYCOL 3350 17 GM PACKET PO PRN (20:17)
[2020-04-01] MEDS ORDERED: DEXTROSE 50% 50 ML VIAL IV PRN ×2 (20:17)
[2020-04-01] MEDS ORDERED: ONDANSETRON 4 MG/2 ML VIAL ONE (20:17)
[2020-04-01] MEDS ORDERED: LIDOCAINE HCL/PF 100 MG/5 ML SYRINGE IV ONE (20:17)
[2020-04-01] MEDS ORDERED: hydrALAZINE 20 MG/ML VIAL IV PRN (20:17)
[2020-04-01] MEDS ORDERED: GLYCOPYRROLATE 0.2 MG/ML VIAL IV ONE (20:17)
[2020-04-01] MEDS ORDERED: ONDANSETRON 4 MG ODT TABLET SL PRN (20:17)
[2020-04-01] MEDS ORDERED: DEXTROSE 31 GM ORAL.SUSP PO PRN ×2 (20:17)
[2020-04-01] MEDS: 0.9 % SODIUM CHLORIDE 10 ML SYRINGE IV SCH (20:20)
[2020-04-01] MEDS ORDERED: SIMVASTATIN 20 MG TABLET PO SCH (21:00)
[2020-04-01] MEDS ORDERED: INSULIN GLARGINE, HUMAN 1 UNIT/0.01 ML SQ SCH ×2 (21:00)
[2020-04-01] MEDS ORDERED: HEPARIN 5,000 UNIT/ML VIAL SQ SCH (21:00)
[2020-04-01] MEDS ORDERED: TAMSULOSIN 0.4 MG CAPSULE PO SCH ×2 (21:00)
[2020-04-01] MEDS: HEPARIN 5,000 UNIT/ML VIAL SQ SCH (22:43)
[2020-04-02] MEDS: 0.9 % SODIUM CHLORIDE 10 ML SYRINGE IV SCH (04:20)
[2020-04-02 06:20] LABS: Basophils # (Auto) 0.06 K/mcL (0.00-0.20); Basophils % (Auto) 0.6 % (0.0-2.0); Eosinophils # (Auto) 0.27 K/mcL (0.00-0.70); Eosinophils % (Auto) 2.7 % (0.0-7.0); Hematocrit 33.3 % (41.0-55.0); Hemoglobin 9.9 g/dL (13.5-16.5); Lymphocytes # (Auto) 1.85 K/mcL (1.50-4.80); Lymphocytes % (Auto) 18.3 % (15.0-49.0); Mean Cell Volume 91.5 fL (80.0-100.0); Mean Corpuscular HGB Conc 29.7 g/dL (31.0-36.0); Mean Platelet Volume 10.4 fL (7.4-10.4); Monocytes # (Auto) 1.12 K/mcL (0.10-0.90); Monocytes % (Auto) 11.1 % (1.0-12.0); Neutrophils % (Auto) 67.3 % (38.0-78.0); Platelet Count 227 K/mcL (140-440); RBC 3.64 M/mcL (4.50-5.90); Red Cell Distribution Width 13.6 % (11.5-14.5); WBC 10.1 K/mcL (4.5-11.0)
--- NOTE | 2020-04-02 06:43 | XRay Report ---
CLINICAL INFORMATION: Post operative abdominal distention COMPARISON: None. FINDINGS: Stool gas pattern is unremarkable. No free air or organomegaly or soft tissue mass. Moderate abdominal enlargement due to pannus appreciated. 1 cm C shaped calcification right upper quadrant is likely a hepatic granuloma. Does not configuration of a gallstone IMPRESSION: Negative Interpreted and Authenticated by: Carlos Temple 04/02/20
[2020-04-02 07:14] LABS: ALT/SGPT 10 U/L (<40); AST/SGOT 28 U/L (<40); Alkaline Phosphatase 97 U/L (39-117); Bilirubin,Direct < 0.2 mg/dL (<0.3); Bilirubin,Total 0.3 mg/dL (0.1-1.0); Blood Urea Nitrogen 51 mg/dL (8-23); Calcium 8.2 mg/dL (8.6-10.4); Carbon Dioxide 24 mmol/L (22-30); Chloride 99 mmol/L (96-108); Glomerular Filtration Rate 24; Glucose 60 mg/dL (70-105); Lactate Dehydrogenase 218 U/L (135-225); Phosphorous 6.2 mg/dL (2.5-4.5); Triglycerides 169 mg/dL (<150); Uric Acid 7.5 mg/dL (2.5-8.0)
[2020-04-02] MEDS: INSULIN LISPRO 1 UNIT/0.01 ML UNIT SQ SCH ×2 (07:25→11:02)
[2020-04-02] MEDS ORDERED: OMEPRAZOLE 20 MG CAPSULE PO SCH (07:30)
[2020-04-02] MEDS ORDERED: INSULIN GLARGINE, HUMAN 1 UNIT/0.01 ML SQ SCH ×3 (09:00)
[2020-04-02] MEDS ORDERED: VITAMIN D3 5,000 UNIT CAPSULE PO SCH (09:00)
[2020-04-02] MEDS ORDERED: POLYETHYLENE GLYCOL 3350 17 GM PACKET PO SCH (09:00)
[2020-04-02] MEDS: HEPARIN 5,000 UNIT/ML VIAL SQ SCH (09:10)
[2020-04-02] MEDS: SENNOSIDES/DOCUSATE SODIUM 1 TAB TABLET PO SCH (09:38)
[2020-04-02] MEDS ORDERED: IPRATROPIUM/ALBUTEROL 3 ML AMPUL.NEB NEB SCH (11:00)
[2020-04-02] MEDS ORDERED: FUROSEMIDE 40 MG/4 ML VIAL IV ONE ×2 (12:31→20:00)
[2020-04-02 13:22] LABS: Albumin 3.1 gm/dL (3.2-5.2); Blood Urea Nitrogen 51 mg/dL (8-23); Calcium 8.4 mg/dL (8.6-10.4); Carbon Dioxide 26 mmol/L (22-30); Chloride 97 mmol/L (96-108); Glomerular Filtration Rate 26; Glucose 95 mg/dL (70-105); Phosphorous 5.5 mg/dL (2.5-4.5)
--- NOTE | 2020-04-02 14:16 | Discharge Summary ---
Discharge Provider Provider Patient information: Note initiated : 04/02/20 at 1:19 pm Service Date, if different from initiated Date: [] Patient: Pantera Jain 69 y/o M admitted on 03/30/20 for Right Below Knee Amputation. Chief Complaint: [nonhealing right ankle wound] Date of admission: 03/30/20 09:19 Discharge date: 04/02/20 Primary care physician: Orlando Sloan Consults: 03/30/20 13:37 Consult to Physician [CONS] Routine Comment: Consulting Provider: Steffen Armstrong Reason For Exam: Physician to Consult Discharge Meds Discharge Medications Home Medications Lantus U-100 Insulin 60 mg SQ DAILY 12/19/17 [History Confirmed 03/30/20 Last Taken 03/29/20] amlodipine 10 mg PO DAILY 12/19/17 [History Confirmed 03/30/20 Last Taken 03/29/20] cholecalciferol (vitamin D3) [Dialyvite Vitamin D] 5,000 unit PO DAILY 12/19/17 [History Confirmed 03/30/20 Last Taken 03/29/20] lisinopril [Zestril] 40 mg PO HS 12/19/17 [History Confirmed 03/30/20 Last Taken 03/30/20] clotrimazole 1 dose TOPICAL BID 04/01/18 [History Confirmed 03/30/20 Last Taken 03/29/20] polyethylene glycol 3350 17 gm PO PRN PRN 04/01/18 [History Confirmed 03/30/20 Last Taken 03/29/20] simvastatin 20 mg PO HS 04/01/18 [History Confirmed 03/30/20 Last Taken 03/29/20] Lantus Solostar U-100 Insulin 30 unit SUBCUT HS 03/24/20 [History Confirmed 03/30/20 Last Taken 03/29/20] glipizide 15 mg PO HS 03/24/20 [History Confirmed 03/30/20 Last Taken 03/29/20] glipizide 20 mg PO QDAY 03/24/20 [History Confirmed 03/30/20 Last Taken 03/29/20] omeprazole 20 mg PO ACB 03/24/20 [History Confirmed 03/30/20 Last Taken 03/30/20] sennosides-docusate sodium 1 tab-cap PO BID 03/24/20 [History Confirmed 03/30/20 Last Taken 03/29/20] COURSE Hospital Course Hospital course: Mr. Jain is a 69 year old M with a history of HTN, IDDM II, HLD, reported CKD (II-III), GERD, morbid obesity who was admitted to [facility] on 03/30/20 for a rigth BKA by the orthopedic surgery service. The pertinent orthopedic history is that the patient had right bimalleolar ankle fractures requiring ORIF a couple years ago. That was unfortunately complicated by delayed union and required a subsequent revision in March 2018. That was apparently complicated by posttraumatic arthritis and the patient underwent later required ankle fusion. That was complicated by poor wound healing and the patient ultimately required a right BKA which led this hospital admission. The hospitalist service was asked to manage as the primary service due to medical comorbidities. The patient underwent a successful BKA on 03/30/20 but unfortunately developed an DEENA. The patient received IV fluids for the DEENA which did not respond to the IV fluid challenge. Urine analysis was fairly benign, no WBC or RBC, only some urine protein. Lisinopril was held for the DEENA, later norvasc was also held for low normal blood pressure. There where no fevers of leukocytosis to suspect an underlying infectious process. The patient developed edema in his remaining left leg and a chest xray was suggestive of early CHF. The patient received IV lasix. A vargas catheter was placed for urinary retention after multiple straight caths were required. Bilateral renal ultrasound was ordered but not completed as it was the weekend. At around that time the patient also developed hypoxia requiring about 4l/min oxygen via nasal canula. The patient was also increasingly confused. An ABG was consistent with respiratory acidosis and hypoxia. All pain medications and other potentially sedating medications were discontinued. The patient was transferred to the [facility] ICU and started on BiPAP. Repeat ABG showed persistent respiratory acidosis and CO2 levels that were not much improved. BiPAP pressure levels were increased to 18/8, repeat ABG showed about the same level of respiratory acidosis pH 7.27, pCO2 60 with pO2 104 on FiO2 40. HCO3 was 27.6. Code status was discussed with the patient but his was confused, likely from CO2 narcosis, and did not have capacity. No family was identified to act as a surrogate decision maker after a search of available records. Given the concern that the patient was not improving on BiPAP and may require intubation and mechanical ventilation as the next intervention for respiratory failure the patient was discharged to the [facility] ICU. Case discussed with Dr. Bai. The patient's previous home medications were continued unchanged at this discharge to avoid confusion during the hospital to hospital transfer however many of them were held for all or part of this hospitalization, notably lisinopril, norvasc, and glipizide. Also required significantly less Lantus compared to his home dose. Hospitalization are discussed below; Acute hypoxic and hypercapnic respiratory failure-see above, I suspect hypoxia developed mostly is a result of volume overload/CHF and that respiratory acidosis ensued in the setting of post operative pain control with opioids, possibly undiagnosed obstructive sleep apnea and/or obesity hypoventilation syndrome, abdominal distention (see below), and respiratory fatigue resulting in failure to correct hypercapnia with BiPAP. The patient will be at high risk of requiring intubation and mechanical ventilation. Congestive heart failure-likely from IV fluids received during surgery and for the DEENA, received lasix IV but will need more diuresis. Suspect underlying diastolic dysfunction, follow up pending ECHO report. Acute kidney injury-suspect this is from ATN related to hemodynamic changes during the recent surgery, less likely to be another form of intrinsic kidney injury. The patient did have urinary retention noted on point of care ultrasound but that was likely related to opioids and underlying BPH. I doubt obstructive nephropathy however renal ultrasound was not done as it was the weekend-consider ordering to rule out hydronephrosis. Did not respond to IV fluid challenge and now actually volume overloaded requiring IV lasix. Recommend following renal function closely and will likely require more diuresis over the next couple days. Expect this to resolve but could progress to requiring renal replacement therapy. Will need to continue holding lisinopril and avoid nephrotoxic medications. Atrial flutter-noted on EKG and persistent on telemetry. This is an new diagnosis and spontanously rate controlled during this hospitalization. Recommend monitoring on telemetry which will likely be done in the [facility] ICU. ECHO was completed at [facility], the report is pending. If atrial flutter is confirmed then could consider anticoagulation for stroke prophylaxis and cardiology follow up. Diabetes mellitus-required decreased doses of Lantus compared to home regimen, likely due to poor food intake and DEENA. Held home glipizide in the hospital. Encephalopathy-suspect this is secondary to CO2 narcosis. Patient wakes up with stimulation and follows commands briefly before falling back asleep. If focal neurologic signs develop could consider stroke in the setting of atrial flutter. Mildly elevated troponin-likely type II ME from CHF vs nonischemic myocardial injury, no ischemic changes noted on EKG. Consider trending troponin for a couple labs. Follow ECHO report for wall motion abnormalities. Recent BKA-wound cares, has wound VAC, after the patient has stabilized he will likely need a SNF for rehab. Abdominal distention-nontender, no guarding. Abdominal xray reported as negative. Aggressive bowel regimen and close monitoring. Discharge diagnosis: Acute hypoxic and hypercapnic respiratory failure Secondary discharge diagnosis: Acute kidney injury S/p right BKA for nonhealing ankle surgical wound. Diabetes mellitus type II Hypertension Obesity Reason for admission: Right BKA Time Spent with Patient Time attestation: Total time spent providing and/or coordinating discharge services: 40 minutes EXAM Constitutional Vitals: Temp Pulse Resp BP Pulse Ox 98.5 F 87 14 149/74 100 04/02/20 12:01 04/02/20 12:01 04/02/20 12:01 04/02/20 12:01 04/02/20 12:01 Additional findings Additional findings: Head: Atraumatic, normal inspection. Eyes: normal appearance, no scleral icterus. Neck: full ROM Respiratory: on BiPAP, no accessory muscle use Cardiovascular: normal rate and irregular rhythm, S1, S2. GI/Abdominal: distended, nontender, no guarding. Extremities: right BKA, left lower extremity pitting edema. Neurological: confused, CN II-XII intact, intact motor, intact sensation. Psychiatric: somewhat agitated when awakened Skin: warm, normal color Discharge Data Data Completed and Pending Labs on day of discharge: Labs from last 24 hours 04/02/20 04/02/20 04/02/20 12:08 09:53 04:53 WBC 10.1 RBC 3.64 L Hgb 9.9 L Hct 33.3 L MCV 91.5 MCH 27.2 MCHC 29.7 L RDW 13.6 Plt Count 227 MPV 10.4 Neut % (Auto) 67.3 Lymph % (Auto) 18.3 Bulloch % (Auto) 11.1 Eos % (Auto) 2.7 Baso % (Auto) 0.6 Lymph # (Auto) 1.85 Bulloch # (Auto) 1.12 H Eos # (Auto) 0.27 Baso # (Auto) 0.06 Absolute Neutrophils 6.79 Sodium Pending Potassium Pending Chloride Pending Carbon Dioxide Pending Anion Gap Pending BUN Pending Creatinine Pending GFR Calculation Pending Glucose Pending Uric Acid Calcium Pending Phosphorus Pending Magnesium Total Bilirubin Direct Bilirubin GGT AST ALT Alkaline Phosphatase Lactate Dehydrogenase Troponin T 0.03 H NT-Pro-B Natriuret Pep Total Protein Albumin Pending Globulin Albumin/Globulin Ratio Triglycerides Urine Color Urine Appearance Urine pH Ur Specific [place] Urine Protein Urine Glucose (UA) Urine Ketones Urine Occult Blood Urine Nitrate Urine Bilirubin Urine Urobilinogen Ur Leukocyte Esterase Urine RBC Urine WBC Ur Squamous Epith Cells Calcium Oxalate Crystal Urine Bacteria Hyaline Casts Urine Mucus Ur Culture Indicated? Ur Random Creatinine Ur Random Sodium 04/02/20 04/01/20 04/01/20 04:52 16:45 11:45 WBC RBC Hgb Hct MCV MCH MCHC RDW Plt Count MPV Neut % (Auto) Lymph % (Auto) Bull[place] % (Auto) Eos % (Auto) Baso % (Auto) Lymph # (Auto) [place] # (Auto) Eos # (Auto) Baso # (Auto) Absolute Neutrophils Sodium 132 L Potassium 5.0 Chloride 99 Carbon Dioxide 24 Anion Gap 9.0 BUN 51 H Creatinine 2.6 H GFR Calculation 24 Glucose 60 L Uric Acid 7.5 Calcium 8.2 L Phosphorus 6.2 H* Magnesium 2.0 Total Bilirubin 0.3 Direct Bilirubin < 0.2 GGT 26 AST 28 ALT 10 Alkaline Phosphatase 97 Lactate Dehydrogenase 218 Troponin T NT-Pro-B Natriuret Pep 1563.0 H Total Protein 6.0 Albumin 3.0 L Globulin 3.0 Albumin/Globulin Ratio 1.0 Triglycerides 169 H Urine Color Yellow Urine Appearance Clear Urine pH 5.0 Ur Specific [place] 1.018 Urine Protein 30 A Urine Glucose (UA) 150 A Urine Ketones Negative Urine Occult Blood Negative Urine Nitrate Negative Urine Bilirubin Negative Urine Urobilinogen Negative Ur Leukocyte Esterase Negative Urine RBC < 1 Urine WBC 2 Ur Squamous Epith Cells 1 Calcium Oxalate Crystal Few A Urine Bacteria Few A Hyaline Casts 40 H Urine Mucus Mod A Ur Culture Indicated? Yes Ur Random Creatinine Ur Random Sodium 04/01/20 04/01/20 11:45 11:45 WBC RBC Hgb Hct MCV MCH MCHC RDW Plt Count MPV Neut % (Auto) Lymph % (Auto) [place] % (Auto) Eos % (Auto) Baso % (Auto) Lymph # (Auto) [place] # (Auto) Eos # (Auto) Baso # (Auto) Absolute Neutrophils Sodium Potassium Chloride Carbon Dioxide Anion Gap BUN Creatinine GFR Calculation Glucose Uric Acid Calcium Phosphorus Magnesium Total Bilirubin Direct Bilirubin GGT AST ALT Alkaline Phosphatase Lactate Dehydrogenase Troponin T NT-Pro-B Natriuret Pep Total Protein Albumin Globulin Albumin/Globulin Ratio Triglycerides Urine Color Urine Appearance Urine pH Ur Specific [place] Urine Protein Urine Glucose (UA) Urine Ketones Urine Occult Blood Urine Nitrate Urine Bilirubin Urine Urobilinogen Ur Leukocyte Esterase Urine RBC Urine WBC Ur Squamous Epith Cells Calcium Oxalate Crystal Urine Bacteria Hyaline Casts Urine Mucus Ur Culture Indicated? Ur Random Creatinine 182.3 Ur Random Sodium 56 Preliminary micro results at discharge 04/01/20 11:45 Urine Culture - Preliminary Urine - Catheterized Discharge Plan Patient/Caregiver Discharge Instructions Prescriptions: Continued Lantus U-100 Insulin 1 UNIT/0.01 ML solution 60 mg SQ DAILY RF: 0 amlodipine 10 MG tablet 10 mg PO DAILY RF: 0 lisinopril [Zestril] 30 MG tablet 40 mg PO HS RF: 0 cholecalciferol (vitamin D3) [Dialyvite Vitamin D] 5,000 UNIT capsule 5,000 unit PO DAILY RF: 0 polyethylene glycol 3350 17 GM packet 17 gm PO PRN PRN (Reason: Constipation) RF: 0 simvastatin 20 MG tablet 20 mg PO HS RF: 0 clotrimazole 1 DOSE cream 1 dose Topical BID RF: 0 sennosides-docusate sodium 8.6-50 mg Tablet 1 tab-cap PO BID RF: 0 omeprazole 20 mg Capsule,Delayed Release(Dr/Ec) 20 mg PO ACB RF: 0 Lantus Solostar U-100 Insulin 100 unit/mL (3 mL) Insulin Pen 30 unit SUBCUT HS RF: 0 glipizide 5 mg Tablet 20 mg PO QDAY RF: 0 glipizide 5 mg Tablet 15 mg PO HS RF: 0 Follow Up Plan Follow up with: Jurgen Lezama PA-C [Physician Natural Resources Manager] - 04/05/20 (Call for follow up to discharge wound vac) Patient Disposition: [facility] Discharge Orders: Discharge Order (Routine); Ordered 04/02/20 Ordered By: Jonathan MCMULLEN VTE Deep Vein Thrombosis/Pulmonary Embolism Present on Admission: No
--- NOTE | 2020-04-02 14:18 | XRay Report ---
CLINICAL INFORMATION: follow up after diuresis COMPARISON: 04/01/2020 FINDINGS: Moderate cardiomegaly has decreased. Mediastinum is unremarkable. Pulmonary vessels have decreased in caliber and are now only mildly distended. No definite edema. There is mild perihilar airspace disease likely atelectasis. IMPRESSION: Improving CHF or volume overload. Mild right perihilar airspace disease - likely atelectasis Interpreted and Authenticated by: Carlos Temple 04/02/20
--- NOTE | 2020-04-03 11:35 | Surgical Pathology Report ---
Histology Microscopic Diagnosis Specimen A- EXTREMITY, RIGHT LOWER, BELOW THE KNEE AMPUTATION: --- MEDICAL HARDWARE, ANKLE, CONSISTENT WITH PRIOR SURGICAL INTERVENTION. --- ANTERIOR AND POSTERIOR TIBIAL ARTERIES WIDELY PATENT WITH MEDIAL CALCIFIC SCLEROSIS. --- DERMAL SCARS, MEDIAL AND LATERAL ANKLE. --- NO SKIN ULCERATIONS OR DEFECTS IDENTIFIED. --- BONE, SKIN AND SOFT TISSUE MARGINS VIABLE. (DMT) Gross Description Received fresh labeled right [id number] amputation, is a right lower leg that measures 39 cm from resection to heel with a largest calf diameter of 14.5 cm. The foot is 25 cm long, 9.5 cm wide and up to 8 cm thick. The lateral aspect of the ankle has a 9.5 cm long linear scar. The digits are intact and the nail beds of the second through fifth digits appear of normal thickness and length. The first digit nail is irregular, mottled and partially absent. No areas of ulceration are identified. The medial aspect of the ankle has a 4.5 cm long linear scar. The bone, skin and soft tissue resection margins are 25 cm away from the nearest scar. The extremity is dissected along the areas of prior scar to reveal residual suture material. Threads of metal hardware are present on the medial aspect but are not exposed and do not communicate with the skin surface. No associated areas of exudate or possible abscess are seen. The upper part of the lower leg is dissected along its length and has up to 6.5 cm thick of subcutaneous adipose tissue. The anterior and posterior tibial arteries are dissected and appear widely patent without areas of stenosis. The soft tissue and skin margins appear viable. [employer] sections submitted as follows: A1 - tibial marrow at margin; A2 - fibula marrow at margin; A3 - skin and soft tissue at margin; A4 - anterior tibial artery; A5 - posterior tibial artery; A6 - soft tissue adjacent to medial and lateral scars at ankle. (DMT:adj) Electronically Signed Woody Lopez MD, FCAP Electronically Signed 04/03/2020 11:34
--- NOTE | 2020-04-03 13:43 | Ultrasound Report ---
CLINICAL INFORMATION: DEENA not responding of IV fluid, evalute for hydro COMPARISON: None. FINDINGS: Both kidneys are normal and symmetric in size, position and configuration: The right is 10.8 x 6.6 cm and the left is 10.9 x 5.3 cm. Echotexture is elevated both kidneys suggesting medical renal disease. No hydronephrosis, focal solid or cystic lesion. Branch catheter decompresses urinary bladder - no gross abnormality. IMPRESSION: Mild hyperechoic kidneys felt medical renal disease otherwise negative Interpreted and Authenticated by: Carlos Temple 04/03/20
== END 2020-04-02 14:23 | disposition short-term general hospital (02) | DRG 907 ==
LOC: MEDSUR 09:19 → ICU 04-01 20:08
PROVIDERS: ADMIT Orthopaedic Surgery Foot and Ankle Surgery; ATTEND Internal Medicine